=== PATIENT | male | born 1975 | race Hispanic/Latino ===

== ENCOUNTER 2017-07-28 17:28 | Emergency (ER) | payer SELFPAY ==
--- NOTE | 2017-07-28 18:08 | ULT ---
VENOUS DUPLEX STUDY OF THE LEFT LOWER EXTREMITY: Date: 07/28/17 Deep veins of the left lower extremity are evaluated with color Doppler, spectral analysis, and compr ession studies. HISTORY: Left lower extremity pain and edema. FINDINGS: Deep veins of the left lower extremity show normal compression and blood flow. No evidence of deep ve nous thrombosis identified in the left lower extremity. IMPRESSION: No evidence of left lower extremity deep venous thrombosis. POS: BENNY
== END 2017-07-28 19:08 | disposition home or self-care (01) ==
LOC: ERS 17:28
DX: M79.605 Pain in left leg (principal); E11.9 Type 2 diabetes mellitus without complications; Z79.82 Long term (current) use of aspirin

== ENCOUNTER 2017-12-06 09:28 | Emergency (ER) | payer SELFPAY ==
[2017-12-06 09:56] LABS: #Basophils 0.1 thou/uL (0.0-0.2); #Eosinphils 0.1 thou/uL (0.0-0.7); #Monocytes 0.4 thou/uL (0.11-0.59); %Basophils 1.3 % (0.0-1.0); %Eosinophils 1.2 % (0.0-10.0); %Lymphocytes 30.1 % (21.0-51.0); %Monocytes 6.7 % (0.0-10.0); %Neutrophils 60.7 % (42.0-75.0); Hemoglobin 16.5 g/dL (14.0-18.0); Mean Corpuscular HGB CONC 32.7 g/dL (32.0-36.0); Mean Corpuscular Volume 91.8 fL (78.0-98.0); Mean Platelet Volume 7.9 fL (7.4-10.4); Platelet Count 203 thou/uL (130-400); RBC Distribution Width 12.3 % (11.5-14.5); Red Blood Cell (RBC) Count 5.48 mill/uL (4.70-6.10); White Blood Cell (WBC) Count 6.5 thou/uL (4.8-10.8)
[2017-12-06 10:19] LABS: ALT (SGPT) 24 U/L (8-55); AST (SGOT) 18 U/L (5-34); Albumin 4.4 g/dL (3.5-5.0); Alkaline Phosphatase 71 U/L (40-150); Anion Gap 10 mmol/L (10-20); BUN (Urea Nitrogen) 14 mg/dL (8.9-20.6); Bilirubin, Total 0.9 mg/dL (0.2-1.2); Calc. Creatinine Clearance 0 mL/min (70-130); Calcium 9.6 mg/dL (7.8-10.44); Carbon Dioxide 24 mmol/L (22-29); Chloride 106 mmol/L (98-107); Estimated GFR-MDRD 57; Globulin 3.4 g/dL (2.4-3.5); Glucose 111 mg/dL (70-105); Lipase 39 U/L (8-78); Potassium 4.1 mmol/L (3.5-5.1); Protein, Total 7.8 g/dL (6.0-8.3); Sodium 136 mmol/L (136-145)
[2017-12-06 10:30] LABS: Bilirubin Negative (Negative); Blood, Urine Negative (Negative); Clarity CLEAR (Clear); Glucose, Urine (Dipstick) Negative (Negative); Leukocyte Negative (Negative); Nitrite Negative (Negative); Protein, Urine (Dipstick) Trace mg/dL (Neg-Trace); Specific Gravity, Urine 1.018 (1.002-1.036); pH, Urine 6.5 (5.0-9.0)
--- NOTE | 2017-12-06 11:06 | CT ---
CT ABDOMEN AND PELVIS WITHOUT CONTRAST: Date: 12/06/17 Multiple axial tomograms obtained through abdomen and pelvis without IV enhancement. INDICATION: Abdominal pain. Lower left back pain. FINDINGS: Lung bases clear. Liver, spleen, and pancreas unremarkable for an unenhanced exam. Stomach and duodenum unremarkable. A drenal glands normal. Review of the kidneys reveals a 3.0 mm calculus in the upper pole collecting structure of the right k idney. There are two 3.0 mm calculi in the mid pole collecting structures of the right kidney. There are at least two 2.0 mm calculus in the mid to lower pole collecting structures of the left kid sharon. No hydronephrosis. Ureters are normal caliber. There is no evidence of ureteral calculus or obstructi on. The bladder is not distended and is not well evaluated. There is an abnormal protuberance from the posterior inferior right kidney which is isodense to surinder x. This measures 3.4 cm. This lesion is suspicious and needs further evaluation with the postcontrast study to rule out neoplasm. Small bowel loops are normal. Appendix normal. Colon unremarkable but is not distended and not adequa tely evaluated. There is diverticulosis of the left colon. Osseous structures appear unremarkable. Incidentally noted is a small umbilical hernia. IMPRESSION: 1. Suspicious mass-like lesion involving the inferior pole of the right kidney. This is isodense on this unenhanced study. A postcontrast exam is recommended to assess enhancement in this mass-like den sity. 2. There are nonobstructing calculi in the upper collecting structures of both kidneys as described. There is no evidence of ureteral calculus or obstruction. POS: BRENDAN
== END 2017-12-06 11:46 | disposition home or self-care (01) ==
LOC: ERS 09:28
DX: R10.9 Unspecified abdominal pain (principal); E78.5 Hyperlipidemia, unspecified; E11.9 Type 2 diabetes mellitus without complications; F41.9 Anxiety disorder, unspecified; Z79.84 Long term (current) use of oral hypoglycemic drugs
CPT/HCPCS: 36415; 74176; 80053; 81003; 83690; 85025